=== PATIENT | male | born 1980 | race American Indian/Alaskan Native ===

== ENCOUNTER 2020-03-18 12:40 | Emergency (ER) | payer SELFPAY ==
--- NOTE | 2020-03-18 12:51 | Emergency Department Report ---
ED CPR HPI - General Stated Complaint: CARDIAC Time Seen by Provider: 03/18/20 12:47 Source: EMS - History of Present Illness Initial Comments: Patient is 39 years old male with history of schizophrenia per EMS report. Patient brought to the emergency room via EMS in a full cardiac arrest CPR in progress. EMS stated that patient was found by his mother unresponsive and not breathing approximately 45 minutes prior to coming to the ER. EMS stated that patient found in asystole and remained in asystole. Patient intubated by EMS with a Krishna airway and right tibia IO inserted. Patient received epinephrine by EMS. Upon arrival to the ER, patient showing signs of rigidity. Pupils are 5 mm dilated and nonreactive to light. No spontaneous circulation, no spontaneous heart tone. Patient pronounced at 12:42 PM. Complaint: found unresponsive, unknown -: unknown Place: home Bystander CPR Performed: No AED Applied by Bystander/Pneumatic Tube Fitter: No Shock Advised: No Initial Findings in the Field: no pulse, systole ROSC in the Field: No Associated Injuries: No Treatments Prior to Arrival: other airway device (krishna airway) - Related Data Allergies Allergy/AdvReac Type Severity Reaction Status Date / Time No Known Allergies Allergy Verified 03/18/20 13:22 ED Review of Systems ROS: Stated complaint: CARDIAC Other details as noted in HPI Comment: Unobtainable due to pts medical conditions ED Physical Exam - General General appearance: other (CPR in progress) - Head Head exam: Present: atraumatic, normal inspection - Eye Pupils: Present: other (Pupils are 5 mm, dilated and nonreactive to light.) - ENT ENT exam: Present: normal exam - Respiratory Respiratory exam: Present: other (No spontaneous breathing.) - Cardiovascular Cardiovascular Exam: Present: other (No spontaneous heart tone) - GI/Abdominal GI/Abdominal exam: Present: soft. Absent: distended - Neurological Exam Neurological exam: Present: other (CPR in progress.) - Skin Skin exam: Present: dry. Absent: cyanosis ED Course - Reevaluation(s) Reevaluation #1: 03/18/20 14:29 Patient mother arrived to the ER and able to provide more history. She stated that he had a rough night last night. She stated that he stayed in his room all night and asking for water more frequently. She stated that last time she saw him was 4:30 in the morning when he asked for water and she asked him to go and get his water. She stated that she saw him just before 10 AM today walking out to the [facility] and then approximately around 10:30 AM she found him on the bathroom floor. She denied mentioning any suicidal ideation. She also denied any history of suicidal attempt before. She stated he usually will have a rough night when he does not take his Seroquel. Mother also mentioned that he was complaining of back pain yesterday and she thought this is from his rough bed. She denied patient complaining of fever or chills recently. Critical Care Time: Yes Critical care time in (mins) excluding proc time.: 30 Critical care attestation.: If time is entered above; I have spent that time in minutes in the direct care of this critically ill patient, excluding procedure time. ED Disposition Clinical Impression: Cardiopulmonary arrest Disposition: DC-20 Is pt being admited?: No Condition: Stable Referrals: PRIMARY CARE, [Primary Care Provider] - 3-5 Days
== END 2020-03-18 13:00 ==
LOC: EDBD → ED 12:40
DX: I46.9 Cardiac arrest, cause unspecified (principal); F20.9 Schizophrenia, unspecified
CPT/HCPCS: 92950